=== PATIENT | male | born 1975 | race Caucasian/White ===

== ENCOUNTER 2020-03-03 09:30 | Emergency (ER) | payer OTHER, SELFPAY ==
[2020-03-03] MEDS ORDERED: ACETAMINOPHEN 500 MG TAB ONE (11:22)
--- NOTE | 2020-03-03 11:27 | RAD REPORT ---
EXAM DESCRIPTION: RAD - Chest Single View - 03/03/2020 11:14 am CLINICAL HISTORY: Chest pain;Cough Chest pain. COMPARISON: Chest Single View dated 02/14/2016; CHEST SINGLE VIEW dated 06/29/2013; CHEST PA AND LAT 2 VIEW dated 05/29/2012; ABDOMEN ACUTE SERIES dated 03/25/2011 FINDINGS: Portable technique limits examination quality. The lungs are grossly clear. The heart is normal in size. No displaced fractures. IMPRESSION: No acute intrathoracic process suspected.
--- NOTE | 2020-03-03 11:28 | RAD REPORT ---
EXAM DESCRIPTION: RAD - Wrist Left 3 View - 03/03/2020 11:14 am CLINICAL HISTORY: PAIN Pain COMPARISON: No comparisons FINDINGS: No fracture or dislocation seen. No foreign body or other soft tissue abnormality. IMPRESSION: Negative examination.
[2020-03-03] MEDS ORDERED: IBUPROFEN 400 MG TAB ONE (11:32)
[2020-03-03] MEDS ORDERED: IBUPROFEN 200 MG TAB PO ONE (11:32)
--- NOTE | 2020-03-03 11:51 | ER ---
Nurse's Notes [facility] Name: Zac Rowell Age: 44 yrs Sex: Male : 1975 Arrival Date: 03/03/2020 Time: 09:40 Bed 19 Private MD: Diagnosis: Cough;Pain in left wrist;Headache Presentation: 03/03 09:40 Chief complaint: EMS states: Cough x 2 days with sinus pressure, Denies fever, denies jl7 shortness of breath, reports is coughing too. Left wrist/forearm pain x 1 week, denies trauma. Coronavirus screen: Surgical mask placed on patient. Patient moved to private room, placed in contact and droplet isolation with eye protection until further assessment. Patient reports a cough. Patient denies shortness of breath or difficulty breathing. Patient denies measured and/or subjective temperature greater than 100.4F prior to today's visit. Patient denies travel on a cruise ship or to a country the [facility] currently lists as an affected area. Patient denies contact with known and/or suspected case of COVID-19. Ebola Screen: No symptoms or risks identified at this time. Initial Sepsis Screen: Does the patient meet any 2 criteria? No. Patient's initial sepsis screen is negative. Does the patient have a suspected source of infection? No. Patient's initial sepsis screen is negative. Risk Assessment: Do you want to hurt yourself or someone else? Patient reports no desire to harm self or others. Onset of symptoms was January 29, 2020. Care prior to arrival: None. 09:40 Method Of Arrival: EMS: [facility] 09:40 Acuity: [facility] 3 jl7 Triage Assessment: 09:43 General: Appears in no apparent distress. uncomfortable, Behavior is calm, cooperative, jl7 appropriate for age. Pain: Complains of pain in medial aspect of left wrist and palmar aspect of left forearm Pain currently is 10 out of 10 on a pain scale. Neuro: Level of Consciousness is awake, alert, obeys commands, Oriented to person, place, time, situation. Cardiovascular: Patient's skin is warm and dry. Respiratory: Airway is patent Respiratory effort is even, unlabored, Respiratory pattern is regular, symmetrical. Derm: Skin is pink, warm \\T\\ dry. Historical: - Allergies: 09:43 No Known Allergies; jl7 - Home Meds: 09:43 None [Active]; jl7 - PMHx: 09:43 None; jl7 - PSHx: 09:43 None; jl7 - Immunization history:: Adult Immunizations unknown. - Social history:: Smoking status: Patient reports the use of cigarette tobacco products, smokes one-half pack cigarettes per day. Screenin:12 Abuse screen: Denies threats or abuse. Denies injuries from another. Nutritional jl7 screening: No deficits noted. Tuberculosis screening: No symptoms or risk factors identified. Fall Risk None identified. Assessment: 09:45 General: See triage assessment. jl7 11:07 Reassessment: Pt states "Is anything going to be done about this headache that I've had jl7 for 20 years?" Pt reports OSPINA x 20 years, went to a neurologists 10 years ago and never followed up. Reports "It's been hurting all day, every day, for 20 years." ERD notified. 11:22 Reassessment: [facility] # [id number]. aa5 Vital Signs: 09:40 BP 143 / 87; Pulse 79; Resp 17; Temp 98.5; Pulse Ox 98% ; Weight 77.11 kg; Height 6 ft. jl7 2 in. (187.96 cm); Pain 10/10; 10:15 BP 150 / 90; Pulse 75; Resp 14; Pulse Ox 97% ; jl7 11:00 BP 127 / 96; Pulse 74; Resp 15; Pulse Ox 96% ; jl7 11:42 BP 128 / 80; Pulse 62; Resp 17; Pulse Ox 96% ; jl7 09:40 Body Mass Index 21.83 (77.11 kg, 187.96 cm) jl7 ED Course: 09:40 Patient arrived in ED. jl7 09:43 Triage completed. jl7 09:43 Arm band placed on right wrist. jl7 10:01 Chencho Ambrosio MD is Attending Physician. kdr 10:37 Ridge Becker RN is Primary Nurse. jl7 11:07 Flu and/or RSV swab sent to lab. Strep swab sent to lab. COVID-19 swab sent to lab. jl7 11:12 Patient has correct armband on for positive identification. Bed in low position. Call [facility] light in reach. Side rails up X 1. [place] [employer] at bedside. Pulse ox on. NIBP on. 11:16 CXR XRAY In Process Unspecified. EDMS 11:16 Wrist Left (3 View) XRAY In Process Unspecified. EDMS 11:37 Flu Sent. jl7 11:57 No provider procedures requiring assistance completed. Patient did not have IV access jl7 during this emergency room visit. Administered Medications: 11:35 Drug: Tylenol 1000 mg Route: PO; jl7 11:57 Follow up: Response: No adverse reaction jl7 11:35 Drug: Motrin 600 mg Route: PO; jl7 11:57 Follow up: Response: No adverse reaction jl7 Outcome: 11:51 Discharge ordered by . kdr 11:57 Discharged to Law Enforcement jl7 11:57 Condition: stable 11:57 Discharge instructions given to patient, police, Instructed on discharge instructions, follow up and referral plans. medication usage, Demonstrated understanding of instructions, follow-up care, medications, Prescriptions given X 1. 11:58 Patient left the ED. jl7 Addendum: 03/04/2020 17:44 Addendum: Other Attempted to contact pt regarding negative COVID-19 swab results. d m5 Received the message "the person you are trying to reach is not accepting calls at this time". Signatures: Dispatcher [employer] Jeanna Ugalde, RN RN dm5 Chencho Ambrosio MD MD kdr Calderon, Audri, RN RN aa5 Ridge Becker RN RN jl7
--- NOTE | 2020-03-03 11:51 | EDPHYS ---
Physician Documentation [facility] Name: Zac Rowell Age: 44 yrs Sex: Male : 1975 Arrival Date: 03/03/2020 Time: 09:40 Bed 19 Private MD: ED Physician Chencho Ambrosio HPI: 03/03 10:25 This 44 yrs old Male presents to ER via EMS with complaints of Non-Productive kdr Cough - left wirst pain and OSPINA. 10:25 The patient states that he has had a cough and congestion for a week and also left kdr wrist pain for about four days and also a frontal OSPNIA. The patient is here in police custody.. Onset: The symptoms/episode began/occurred gradually. Severity of symptoms: At their worst the symptoms were mild in the emergency department the symptoms are unchanged. The patient has not experienced similar symptoms in the past. It is unknown whether or not the patient has recently seen a physician. Historical: - Allergies: 09:43 No Known Allergies; jl7 - Home Meds: :43 None [Active]; jl7 - PMHx: :43 None; jl7 - PSHx: 09:43 None; jl7 - Immunization history:: Adult Immunizations unknown. - Social history:: Smoking status: Patient reports the use of cigarette tobacco products, smokes one-half pack cigarettes per day. ROS: 10:25 Constitutional: Negative for fever, chills, and weight loss, Eyes: Negative for injury, kdr pain, redness, and discharge, Neck: Negative for injury, pain, and swelling, Cardiovascular: Negative for chest pain, palpitations, and edema, Abdomen/GI: Negative for abdominal pain, nausea, vomiting, diarrhea, and constipation, Back: Negative for injury and pain, : Negative for injury, bleeding, discharge, and swelling, Skin: Negative for injury, rash, and discoloration, Psych: Negative for depression, anxiety, suicide ideation, homicidal ideation, and hallucinations, Allergy/Immunology: Negative for hives, rash, and allergies, Endocrine: Negative for neck swelling, polydipsia, polyuria, polyphagia, and marked weight changes, Hematologic/Lymphatic: Negative for swollen nodes, abnormal bleeding, and unusual bruising. 10:25 Respiratory: Positive for cough, with no reported sputum, shortness of breath, Negative for dyspnea on exertion, hemoptysis, orthopnea, pleurisy, sputum production, wheezing, acute changes. 10:25 MS/extremity: Positive for pain, of the left wrist and left hand. Exam: 10:25 Constitutional: This is a well developed, well nourished patient who is awake, alert, kdr and in no acute distress. Head/Face: Normocephalic, atraumatic. Eyes: Pupils equal round and reactive to light, extra-ocular motions intact. Lids and lashes normal. Conjunctiva and sclera are non-icteric and not injected. Cornea within normal limits. Periorbital areas with no swelling, redness, or edema. Neck: Trachea midline, no thyromegaly or masses palpated, and no cervical lymphadenopathy. Supple, full range of motion without nuchal rigidity, or vertebral point tenderness. No Meningismus. Chest/axilla: Normal chest wall appearance and motion. Nontender with no deformity. No lesions are appreciated. Cardiovascular: Regular rate and rhythm with a normal S1 and S2. No gallops, murmurs, or rubs. Normal PMI, no JVD. No pulse deficits. Respiratory: Lungs have equal breath sounds bilaterally, clear to auscultation and percussion. No rales, rhonchi or wheezes noted. No increased work of breathing, no retractions or nasal flaring. Abdomen/GI: Soft, non-tender, with normal bowel sounds. No distension or tympany. No guarding or rebound. No evidence of tenderness throughout. Back: No spinal tenderness. No costovertebral tenderness. Full range of motion. Skin: Warm, dry with normal turgor. Normal color with no rashes, no lesions, and no evidence of cellulitis. MS/ Extremity: Pulses equal, no cyanosis. Neurovascular intact. Full, normal range of motion. Neuro: Awake and alert, GCS 15, oriented to person, place, time, and situation. Cranial nerves II-XII grossly intact. Motor strength 5/5 in all extremities. Sensory grossly intact. Cerebellar exam normal. Normal gait. Psych: Awake, alert, with orientation to person, place and time. Behavior, mood, and affect are within normal limits. Vital Signs: 09:40 BP 143 / 87; Pulse 79; Resp 17; Temp 98.5; Pulse Ox 98% ; Weight 77.11 kg; Height 6 ft. [facility] 2 in. (187.96 cm); Pain 10/10; 10:15 BP 150 / 90; Pulse 75; Resp 14; Pulse Ox 97% ; jl7 11:00 BP 127 / 96; Pulse 74; Resp 15; Pulse Ox 96% ; jl7 11:42 BP 128 / 80; Pulse 62; Resp 17; Pulse Ox 96% ; 7 09:40 Body Mass Index 21.83 (77.11 kg, 187.96 cm) [facility] MDM: 10:25 Data reviewed: vital signs, nurses notes, radiologic studies. Counseling: I had a kdr detailed discussion with the patient and/or guardian regarding: the historical points, exam findings, and any diagnostic results supporting the discharge/admit diagnosis, radiology results. 11:51 Patient medically screened. [facility] 03/03 10:37 Order name: Flu [facility] 03/03 10:37 Order name: Strep; Complete Time: 11:49 [facility] 03/03 10:39 Order name: Influenza Screen (A ; Complete Time: 11:49 [facility] 03/03 10:52 Order name: COVID-19 [facility] 03/03 11:45 Order name: Throat Culture [facility] 03/03 10:18 Order name: CXR XRAY [facility] 03/03 10:18 Order name: Wrist Left (3 View) XRAY [facility] 03/03 10:37 Order name: Document PUI#; Complete Time: 11:45 [facility] 03/03 10:37 Order name: Droplet/Contact Precautions; Complete Time: 10:56 [facility] 03/03 10:37 Order name: Labs collected and sent; Complete Time: 10:56 [facility] 03/03 10:37 Order name: Notify Health Dept [phone]/ ; Complete Time: 11:45 [facility] 03/03 10:37 Order name: O2 Per Protocol; Complete Time: 10:56 [facility] Administered Medications: 11:35 Drug: Tylenol 1000 mg Route: PO; [facility] 11:57 Follow up: Response: No adverse reaction [facility] 11:35 Drug: Motrin 600 mg Route: PO; [facility] 11:57 Follow up: Response: No adverse reaction [facility] Disposition: 03/03/20 11:51 Discharged to Home. Impression: Cough, Pain in left wrist, Headache. - Condition is Stable. - Discharge Instructions: General Headache Without Cause, Wrist Pain, [id number], Cough, Adult. - Prescriptions for Tessalon Perles 100 mg Oral Capsule - take 1 capsule by ORAL route every 8 hours As needed; 15 capsule. - Medication Reconciliation Form, Thank You Letter form. - Follow up: Private Physician; When: 2 - 3 days; Reason: If symptoms return, Further diagnostic work-up, Recheck today's complaints, Continuance of care, Re-evaluation by your physician. - Problem is an ongoing problem. - Symptoms are unchanged. Signatures: Dispatcher [employer] EDMS Chencho Ambrosio MD MD kdr Ridge Becker RN RN jl7 Corrections: (The following items were deleted from the chart) 11:58 11:51 03/03/2020 11:51 Discharged to Home. Impression: Cough; Pain in left wrist; jl7 Headache. Condition is Stable. Forms are Medication Reconciliation Form, Thank You Letter, Antibiotic Education, Prescription Opioid Use. Follow up: Private Physician; When: 2 - 3 days; Reason: If symptoms return, Further diagnostic work-up, Recheck today's complaints, Continuance of care, Re-evaluation by your physician. Problem is an ongoing problem. Symptoms are unchanged. kdr
[2020-03-03 12:04] VITALS: TEMP 98.5
[2020-03-03 12:07] VITALS: O2SAT 96
[2020-03-03 12:08] VITALS: BP 128/80
== END 2020-03-03 11:58 | disposition home or self-care (01) ==
LOC: ER 09:30
DX: R51 Headache (principal); M25.532 Pain in left wrist; F17.210 Nicotine dependence, cigarettes, uncomplicated
CPT/HCPCS: 71045; 87070; 87081; 87804; 99284